=== PATIENT | male | born 1975 | race Caucasian/White ===

== ENCOUNTER 2021-02-24 12:23 | Outpatient (CLI) | payer BC, OTHER, SELFPAY | END 2021-02-24 12:24 | disposition home or self-care (01) | LOC: ANHAUDIO 12:25 | PROVIDERS: Visit Provider Nurse Practitioner Family | DX: H93.13 Tinnitus, bilateral (principal) | CPT/HCPCS: 92557; 92567 ==

== ENCOUNTER 2021-04-06 07:51 | Outpatient (CLI) | payer BC, OTHER, SELFPAY | END 2021-04-06 07:52 | disposition home or self-care (01) | LOC: ANHAUDIO 07:53 | PROVIDERS: Visit Provider Nurse Practitioner Family | DX: H93.13 Tinnitus, bilateral (principal) | CPT/HCPCS: 92537; 92540; 92546; 92567 ==